=== PATIENT | male | born 1940 | race Caucasian/White ===

== ENCOUNTER 2017-09-16 21:09 | Inpatient (IN) | payer OTHER ==
[2017-09-16 22:32] LABS: Absolute Lymphocytes (CBC) 1.2 K/uL (0.7-4.9); Absolute Monocytes 1.4 K/uL (0.1-1.3); Basophils % 0.8 % (0-1.3); Eosinophils % 0.3 % (0-4.4); Hematocrit 40.1 % (39.6-49.0); Lymphocytes % 12.2 % (15.3-44.8); MCH 29.3 pg (27.0-35.0); MCV 87.9 fL (80-100); MPV 10.1 fL (7.6-11.3); Monocytes % 14.8 % (3.3-12.3); RBC Red Blood Cell Count 4.56 M/uL (4.33-5.43)
[2017-09-16 22:43] LABS: Protime INR 1.19
[2017-09-16 22:54] LABS: Albumin 3.7 g/dL (3.2-5.5); Bilirubin Direct 0.1 mg/dL (0-0.2); Bilirubin Total 0.6 mg/dL (0.3-1.2); Protein, Total 8.3 g/dL (6.0-8.3)
[2017-09-16] MEDS ORDERED: NA CHLORIDE 0.9% 1,000 ML ONE (23:04)
[2017-09-17 00:41] LABS: Urine Blood 2+ (NEG); Urine Glucose NEGATIVE (NEG); Urine Protein 3+ (NEG); Urine pH 5.5 (5.0-7.0)
[2017-09-17] MEDS ORDERED: CEFTRIAXONE/SWI 1gm 1 GM/10 ML SYR ONE (00:47)
--- NOTE | 2017-09-17 00:49 | ER ---
Nurse's Notes [facility] Name: Toney Brand Age: 77 yrs Sex: Male : 1940 Arrival Date: 09/16/2017 Time: 21:13 Bed 8 Private MD: Ze Strauss V Diagnosis: Dehydration;Urinary tract infection, site not specified Presentation: 09/16 21:10 Presenting complaint: EMS states: that pt's called because he is having overall fc weakness since early this am when he woke up. Pt weakness is noted to all exts but told EMS that is normal for pt along with his left facial droop since his CVA a few months ago. Transition of care: patient was not received from another setting of care. Onset of symptoms was September 16, 2017 at 07:00. Initial Sepsis Screen: Does the patient meet any 2 criteria? Temp <36.0*C (96.8*F)) or > 38.3*C (100.4*F). Yes Does the patient have a suspected source of infection? No. Patient's initial sepsis screen is negative. Care prior to arrival: Glucose check: 70. 21:10 Method Of Arrival: EMS: [facility] 21:10 Acuity: JOY 2 fc Historical: - Allergies: 21:24 NKA; fc - Home Meds: 21:24 Levemir 100 unit/mL subcutaneous soln 25 unit daily [Active]; Novolog 100 unit/mL Sub-Q fc soln 5 unit before meals [Active]; Risperdal 0.5 mg Oral tab nightly [Active]; lisinopril 40 mg Oral tab 1 tab once daily [Active]; tamsulosin 0.4 mg oral cp24 1 cap once daily [Active]; atorvastatin 40 mg oral tab 1 tab once daily [Active]; potassium chloride 10 mEq Oral cpER 1 cap 2 times per day [Active]; pantoprazole 40 mg oral TbEC 1 tab once daily [Active]; Eliquis 5 mg oral tab 1 tab 2 times per day [Active]; amlodipine 10 mg tab 1 tab once daily [Active]; - PMHx: 21:24 broken hips; CVA; Dementia; Parkinsons; POLYCYSTIC KIDNEY DISEASE; GERD; Hypertension; fc enlarged prostate; High Cholesterol; Diabetes - IDDM; - PSHx: 21:24 hip repair; shoulder; fc - Immunization history:: Adult Immunizations unknown. - Social history:: Smoking status: Patient/guardian denies using tobacco. Screenin:18 Abuse screen: Denies threats or abuse. Nutritional screening: No deficits noted. fc Tuberculosis screening: No symptoms or risk factors identified. 22:32 Fall Risk Total Woo Fall Scale indicates High Risk Score (45 or more points). Fall lp1 prevention measures have been instituted. Side Rails Up X 2 Family Present and informed to notify staff if the need to leave the bedside As available patient and family educated on Fall Prevention Program and Strategies. Assessment: 21:30 General: Appears in no apparent distress. Behavior is calm, cooperative. Pain: Denies lp1 pain. Neuro: Level of Consciousness is awake, alert, obeys commands, Oriented to person, place, Bridge Manager are equal bilaterally Moves all extremities. Full function Facial droop on left, From prior CVA per . Cardiovascular: Patient's skin is warm and dry. Respiratory: Respiratory effort is even, unlabored, Breath sounds are clear bilaterally. GI: Abdomen is flat. : Parent/caregiver report the patient having urinary frequency. EENT: No signs and/or symptoms were reported regarding the EENT system. Derm: Skin is fragile, is thin, Skin is dry, Skin is normal. Musculoskeletal: Circulation, motion, and sensation intact. 22:30 Reassessment: Patient appears in no apparent distress at this time. No changes from lp1 previously documented assessment. Patient and/or family updated on plan of care and expected duration. Pain level reassessed. 23:30 Reassessment:. General: Appears in no apparent distress. Behavior is calm, cooperative. lp1 Neuro: Level of Consciousness is awake, alert, obeys commands. Derm: Skin is pink, warm \T\ dry. 09/17 00:45 Reassessment: Patient agitated with straight cath insertion, calm after urine sample lp1 collected; at bedside. 01:30 Reassessment: Attempted to call report, states nurse will call back. lp1 Vital Signs: 09/16 21:10 BP 114 / 67; Pulse 89; Resp 16; Temp 100.5(O); Pulse Ox 96% on R/A; Weight 81.65 kg fc (R); Height 6 ft. 4 in. (193.04 cm) (R); Pain 0/10; 22:00 BP 106 / 61; Pulse 79; Resp 17; Pulse Ox 95% on R/A; lp1 23:00 BP 120 / 69; Pulse 73; Resp 18; Pulse Ox 95% on R/A; lp1 09/17 00:00 BP 112 / 60; Pulse 68; Resp 17; Temp 98.3(O); Pulse Ox 96% on R/A; lp1 01:00 BP 124 / 68; Pulse 73; Resp 17; Pulse Ox 98% on R/A; lp1 01:43 BP 117 / 57; Pulse 61; Resp 15; Pulse Ox 98% on R/A; lp1 09/16 21:10 Body Mass Index 21.91 (81.65 kg, 193.04 cm) ED Course: 09/16 21:10 Arm band placed on Patient placed in an exam room, on a stretcher. fc 21:13 Patient arrived in ED. fc 21:16 Kel Lux MD is Attending Physician. gs 21:17 Triage completed. fc 21:18 Patient has correct armband on for positive identification. Bed in low position. Call fc light in reach. Side rails up X2. pantograph machine operator on. Pulse ox on. NIBP on. 21:18 No provider procedures requiring assistance completed. fc 21:22 Ze Strauss MD is Private Physician. rg2 21:45 Inserted saline lock: 20 gauge in right antecubital area, using aseptic technique. lp1 Blood collected. 22:14 Mariella Bender, RN is Primary Nurse. lp1 22:[address] via stretcher. vm2 22:25 CT completed. Patient moved back from CT. vm2 22:26 CT Head Brain wo Cont In Process Unspecified. EDMS 22:48 Chest Single View XRAY In Process Unspecified. EDMS 22:48 X-ray completed. Portable x-ray completed in exam room. Patient tolerated procedure ag1 well. 09/17 00:38 Straight cath inserted, using sterile technique, 16 Fr. Specimen obtained. lp1 00:48 Ze Strauss MD is Hospitalizing Provider. gs 01:26 Patient admitted, IV remains in place. lp1 Administered Medications: 09/16 23:14 Drug: NS 0.9% 1000 ml Route: IV; Rate: 1 bolus; Site: right antecubital; lp1 09/17 01:16 Follow up: IV Status: Completed infusion lp1 01:00 Drug: Rocephin - (cefTRIAXone) 1 grams Route: IVPB; Infused Over: 30 mins; Site: right lp1 antecubital; 01:17 Follow up: IV Status: Completed infusion lp1 Point of Care Testing: Blood Glucose: 09/16 21:25 Blood Glucose: 82 mg/dL; lp1 Ranges: Outcome: 09/17 00:49 Decision to Hospitalize by Provider. gs 01:26 Condition: stable lp1 01:26 Instructed on the need for admit, to patient and 01:41 Admitted to Tele accompanied by tech, via stretcher, room 416, with chart, Report lp1 called to DANNA Keys 01:48 Patient left the ED. lp1 Signatures: Dispatcher [employer] Tavares Shah rg2 Sanjana Atwood RN RN fc Pena, Laura, RN RN lp1 Jannet Allan Ruby Flynn 2 Kel Lux MD MD
--- NOTE | 2017-09-17 00:49 | EDPHYS ---
Physician Documentation [facility] Name: Toney Brand Age: 77 yrs Sex: Male : 1940 Arrival Date: 09/16/2017 Time: 21:13 Bed 8 Private MD: Ze Strauss V ED Physician Kel Lux HPI: 09/17 00:44 This 77 yrs old Male presents to ER via EMS with complaints of General gs Weakness. 00:44 The patient presents to the emergency department with weakness of the entire body, gs generalized weakness. Onset: The symptoms/episode began/occurred 5 day(s) ago. Context: occurred at home. Associated signs and symptoms: Pertinent positives: altered mental status, chills, anorexia. Severity of symptoms: At their worst the symptoms were moderate in the emergency department the symptoms are unchanged. Current symptoms: confusion. The patient has experienced similar episodes in the past, several times. The patient has been recently seen by a physician: discharge from facility about 10 days ago. Historical: - Allergies: 09/16 21:24 NKA; fc - Home Meds: 21:24 Levemir 100 unit/mL subcutaneous soln 25 unit daily [Active]; Novolog 100 unit/mL Sub-Q fc soln 5 unit before meals [Active]; Risperdal 0.5 mg Oral tab nightly [Active]; lisinopril 40 mg Oral tab 1 tab once daily [Active]; tamsulosin 0.4 mg oral cp24 1 cap once daily [Active]; atorvastatin 40 mg oral tab 1 tab once daily [Active]; potassium chloride 10 mEq Oral cpER 1 cap 2 times per day [Active]; pantoprazole 40 mg oral TbEC 1 tab once daily [Active]; Eliquis 5 mg oral tab 1 tab 2 times per day [Active]; amlodipine 10 mg tab 1 tab once daily [Active]; - PMHx: 21:24 broken hips; CVA; Dementia; Parkinsons; POLYCYSTIC KIDNEY DISEASE; GERD; Hypertension; fc enlarged prostate; High Cholesterol; Diabetes - IDDM; - PSHx: 21:24 hip repair; shoulder; fc - Immunization history:: Adult Immunizations unknown. - Social history:: Smoking status: Patient/guardian denies using tobacco. ROS: 09/17 00:44 Unable to obtain ROS due to baseline dementia. gs Exam: 00:44 Head/Face: Normocephalic, atraumatic. Eyes: Pupils equal round and reactive to light, gs extra-ocular motions intact. Lids and lashes normal. Conjunctiva and sclera are non-icteric and not injected. Cornea within normal limits. Periorbital areas with no swelling, redness, or edema. ENT: Nares patent. No nasal discharge, no septal abnormalities noted. Tympanic membranes are normal and external auditory canals are clear. Oropharynx with no redness, swelling, or masses, exudates, or evidence of obstruction, uvula midline. Mucous membranes moist. Neck: Trachea midline, no thyromegaly or masses palpated, and no cervical lymphadenopathy. Supple, full range of motion without nuchal rigidity, or vertebral point tenderness. No Meningismus. Chest/axilla: Normal chest wall appearance and motion. Nontender with no deformity. No lesions are appreciated. Cardiovascular: Regular rate and rhythm with a normal S1 and S2. No gallops, murmurs, or rubs. Normal PMI, no JVD. No pulse deficits. Respiratory: Lungs have equal breath sounds bilaterally, clear to auscultation and percussion. No rales, rhonchi or wheezes noted. No increased work of breathing, no retractions or nasal flaring. Abdomen/GI: Soft, non-tender, with normal bowel sounds. No distension or tympany. No guarding or rebound. No evidence of tenderness throughout. Back: No spinal tenderness. No costovertebral tenderness. Full range of motion. Skin: Warm, dry with normal turgor. Normal color with no rashes, no lesions, and no evidence of cellulitis. MS/ Extremity: Pulses equal, no cyanosis. Neurovascular intact. Full, normal range of motion. 00:44 Constitutional: The patient appears alert, awake. 00:44 ECG was reviewed by the Attending Physician. 00:44 Neuro: Orientation: Not oriented to place, time, situation, Cranial nerves: CN II- XII are normal as tested, Motor: moves all fours, Sensation: no obvious gross deficits. Vital Signs: 09/16 21:10 BP 114 / 67; Pulse 89; Resp 16; Temp 100.5(O); Pulse Ox 96% on R/A; Weight 81.65 kg fc (R); Height 6 ft. 4 in. (193.04 cm) (R); Pain 0/10; 22:00 BP 106 / 61; Pulse 79; Resp 17; Pulse Ox 95% on R/A; lp1 23:00 BP 120 / 69; Pulse 73; Resp 18; Pulse Ox 95% on R/A; lp1 09/17 00:00 BP 112 / 60; Pulse 68; Resp 17; Temp 98.3(O); Pulse Ox 96% on R/A; lp1 01:00 BP 124 / 68; Pulse 73; Resp 17; Pulse Ox 98% on R/A; lp1 01:43 BP 117 / 57; Pulse 61; Resp 15; Pulse Ox 98% on R/A; lp1 09/16 21:10 Body Mass Index 21.91 (81.65 kg, 193.04 cm) fc MDM: 09/16 21:55 Patient medically screened. 09/17 00:44 Data reviewed: vital signs, old medical records. Response to treatment: the patient's gs symptoms have mildly improved after treatment. Physician consultation: Ze Strauss MD and will see patient in inpatient room. 09/16 22:13 Order name: Basic Metabolic Panel 09/16 22:13 Order name: Blood Culture Adult (2) 09/16 22:13 Order name: CBC with Diff; Complete Time: 00:41 09/16 22:13 Order name: CPK; Complete Time: 00:41 09/16 22:13 Order name: Lactate; Complete Time: 00:41 09/16 22:13 Order name: LFT's; Complete Time: 00:41 09/16 22:13 Order name: Lipase; Complete Time: 00:41 09/16 22:13 Order name: Procalcitonin; Complete Time: 00:41 09/16 22:13 Order name: Protime (+inr); Complete Time: 00:41 09/16 22:13 Order name: Troponin (emerg Dept Use Only); Complete Time: 00:41 09/16 22:13 Order name: AMMONIA; Complete Time: 00:41 09/16 22:13 Order name: Basic Metabolic Panel; Complete Time: 00:41 EDMS 09/17 00:37 Order name: Urine Dipstick--Ancillary (enter results); Complete Time: 00:43 oe 09/17 00:40 Order name: Urine Microscopic Only lp1 09/16 22:13 Order name: Chest Single View XRAY 09/16 22:13 Order name: Accucheck; Complete Time: 22:31 09/16 22:13 Order name: Cardiac monitoring; Complete Time: 22:31 09/16 22:13 Order name: EKG - Nurse/Tech; Complete Time: 22:47 09/16 22:13 Order name: IV Saline Lock - Large Bore; Complete Time: 22:31 09/16 22:13 Order name: Labs collected and sent; Complete Time: 22:31 09/16 22:13 Order name: O2 Per Protocol; Complete Time: 22:31 09/16 22:13 Order name: O2 Sat Monitoring; Complete Time: : 09/16 22:13 Order name: Urine Dipstick-Ancillary (obtain specimen); Complete Time: 00:35 09/16 22:13 Order name: CT Head Brain wo Cont 09/17 00:43 Order name: Urine Culture 09/17 00:57 Order name: Regular EDMS EC:44 Rate is 76 beats/min. Rhythm is regular. IL interval is normal. QRS interval is normal. gs T waves are Normal. No ST changes noted. Clinical impression: Normal ECG. Interpreted by me. Administered Medications: 09/16 23:14 Drug: NS 0.9% 1000 ml Route: IV; Rate: 1 bolus; Site: right antecubital; lp1 09/17 01:16 Follow up: IV Status: Completed infusion lp1 01:00 Drug: Rocephin - (cefTRIAXone) 1 grams Route: IVPB; Infused Over: 30 mins; Site: right lp1 antecubital; 01:17 Follow up: IV Status: Completed infusion lp1 Point of Care Testing: Blood Glucose: 09/16 21:25 Blood Glucose: 82 mg/dL; lp1 Ranges: Critical Glucose Levels:Adult <50 mg/dl or >400 mg/dl <40 mg/dl or >180 mg/dl Disposition: 09/17/17 00:49 Hospitalization ordered by Ze Strauss for Inpatient Admission. Preliminary diagnosis are Dehydration, Urinary tract infection, site not specified. - Bed requested for Telemetry/MedSurg (Inpatient). - Status is Inpatient Admission. lp1 - Condition is Stable. - Problem is new. - Symptoms have improved. UTI on Admission? Yes Signatures: Dispatcher [employer] Kamala Huffman, RN RN Sanjana Hernandez RN Mariella Paul RN RN lp1 Kel Lux MD MD
[2017-09-17] MEDS ORDERED: ACETAMINOPHEN 500 MG TAB PO PRN (00:56)
[2017-09-17 01:05] LABS: Urine Bacteria 20-50 /HPF (NONE SEEN); Urine Culture Reflex Order REFLEXED
[2017-09-17 01:06] LABS: Urine RBC <5 /HPF (NONE SEEN)
[2017-09-17] MEDS: NA CHLORIDE 0.9% 1,000 ML IV SCH ×4 (02:02→20:57)
--- NOTE | 2017-09-17 07:51 | RAD REPORT ---
EXAM DESCRIPTION: Sree Single View09/16/2017 10:50 pm CLINICAL HISTORY: Fever COMPARISON: March 2017 FINDINGS: The lungs appear clear of acute infiltrate. The heart is mildly enlarged. Aorta is tortuo us/ectatic IMPRESSION: No acute abnormalities displayed
--- NOTE | 2017-09-17 08:43 | RAD REPORT ---
EXAM DESCRIPTION: CT - Head Brain Wo Cont - 09/17/2017 8:13 am CLINICAL HISTORY: CVA/weakness COMPARISON: March 2017 TECHNIQUE: Computed axial tomography of the head was obtained. IV contrast was not requested. A prel iminary report was generated by [employer] and reviewed prior to this dictation All CT scans are performed using dose optimization technique as appropriate and may include automated exposure control or mA/KV adjustment according to patient size. FINDINGS: An intracranial bleed is not seen . The ventricles are normal in caliber. No extra-axial fluid collection is noted. Moderate low-density areas within periventricular, deep and subcortical white matter likely represent ischemic changes secondary to small vessel disease. Fluid within the sinuses/ mastoids is not seen. IMPRESSION: No acute intracranial abnormality is seen. If patient's symptoms persist MRI of the bra in would be recommended.
[2017-09-17] MEDS ORDERED: CEFTRIAXONE 1 GM/NS 50 ML 1 GM/50 ML BAG IV SCH (09:00)
--- NOTE | 2017-09-17 09:15 | EKG ---
Test Date: 2017-09-16 Test Time: 22:40:13 Deckhand Maintenance: OR MEASUREMENT RESULTS: Intervals: Rate: 76 OR: 160 QRSD: 94 QT: 382 QTc: 429 Stanley: P: 60 OR: 160 QRS: -10 T: 72 INTERPRETIVE STATEMENTS: Normal sinus rhythm Normal ECG Compared to ECG 03/15/2017 09:53:45 No significant changes Electronically Signed On 09-17-17 09:13:47 CDT by Scar Gilman
[2017-09-17] MEDS: CEFTRIAXONE/SWI 1gm 1 GM/10 ML SYR IV SCH ×2 (09:46→20:19)
[2017-09-17] MEDS ORDERED: D50W 25 GM/50 ML SYRINGE IV PRN (12:57)
[2017-09-17] MEDS ORDERED: GLUCAGON 1 MG/VIAL IM PRN (12:57)
[2017-09-17] MEDS: INSULIN -REGULAR HUMAN 50 UNIT/0.5 ML ML SQ SCH ×2 (16:30→20:18)
[2017-09-17] MEDS ORDERED: INSULIN DETEMIR 100 UNIT/1 ML INSULIN SQ SCH (21:00)
--- NOTE | 2017-09-17 21:03 | P.HP ---
Certification for Inpatient Patient admitted to: Inpatient With expected LOS: >2 Midnights Practitioner: I am a practitioner with admitting privileges, knowledge of patient current condition, hospital course, and medical plan of care. Services: Services provided to patient in accordance with Admission requirements found in Title 42 Section 412.3 of the Code of Federal Regulations Patient History Date of Service: 09/17/17 Reason for admission: WEAK, ALTERED MENTAL STATUS History of Present Illness: MR. TELLO IS A DIABETIC WITH SEVERE DEMENTIA AND IS TAKEN CARE BY AT HOME. SHE IS NOT ABLE TO TAKE CARE OF HER. HE HAS BEEN IN [facility] AND NOW HERE.. ER DOCTOR DID ST CATH UA AND FOUND UTI TO BE ONE PROBLEM. Allergies No Known Drug Allergies Allergy (Verified 01/23/15 22:56) Unknown Home Medications: Alfuzosin HCl [Alfuzosin HCl ER] 10 mg PO DAILY 01/23/15 Insulin Detemir [Levemir*] 25 unit SQ BREAKFAST 01/23/15 Insulin Detemir [Levemir*] 50 unit SQ BEDTIME 09/29/15 Memantine HCl [Namenda Xr] 28 mg PO DAILY 09/29/15 Amlodipine [Norvasc] 10 mg PO DAILY 09/17/17 Apixaban [Eliquis] 5 mg PO BID 09/17/17 Atorvastatin Calcium 40 mg PO DAILY 09/17/17 Divalproex [Depakote Sprinkle] 4 cap PO BID 09/17/17 Insulin Aspart [Novolog Flexpen] 5 unit SQ TIDWM 09/17/17 Lisinopril [Lisinopril] 1 tab PO DAILY 09/17/17 Pantoprazole [Protonix Tab] 40 mg PO DAILY 09/17/17 Potassium Chloride 10 meq PO BID 09/17/17 Tamsulosin [Flomax] 0.4 mg PO DAILY 09/17/17 Terbinafine HCl 250 mg PO DAILY 09/17/17 - Past Medical/Surgical History Has patient received pneumonia vaccine in the past: Yes Diabetic: Yes -: HTN -: IDDM -: High cholesterol -: Parkinson's -: CVA 17yrs ago -: Polycystic kidney disease -: dementia -: gerd -: enlarged prostate -: R rotator cuff sx -: Wrist sx -: Tonsillectomy -: Rt hip sx - aneta and screws Sep 30 2015 - Family History Father Notes: Patient was adopted - Social History Smoking Status: Former smoker Alcohol use: No CD- Drugs: No Caffeine use: Yes Place of Residence: Home Review of Systems 10-point ROS is otherwise unremarkable General: Weakness, Malaise Neurological: Confusion Physical Examination - Vital Signs Temperature: 97.4 F Blood Pressure: 170/64 Pulse: 74 Respirations: 20 Pulse Ox (%): 98 - Physical Exam General: Alert, Mild distress, Confused HEENT: Atraumatic, PERRLA, Mucous membr. moist/pink, EOMI, Sclerae nonicteric Neck: Supple, 2+ carotid pulse no bruit, No LAD, Without JVD or thyroid abnormality Respiratory: Clear to auscultation bilaterally, Normal air movement Cardiovascular: Regular rate/rhythm, Normal S1 S2 Gastrointestinal: Normal bowel sounds, No tenderness Musculoskeletal: No tenderness Integumentary: No rashes Neurological: Normal speech, Normal strength at 5/5 x4 extr, Dementia Lymphatics: No axilla or inguinal lymphadenopathy - Studies Laboratory Data (last 24 hrs) 09/16/17 21:45: PT 14.1 H, INR 1.19 09/16/17 21:45: WBC 9.7, Hgb 13.4 L, Hct 40.1, Plt Count 236 09/16/17 21:45: Sodium 143, Potassium 4.0, BUN 31 H, Creatinine 1.23, Glucose 101, Total Bilirubin 0.6, AST 18, ALT 14, Alkaline Phosphatase 71, Lipase 11 L Assessment and Plan - Problems (Diagnosis) (1) Altered mental state Current Visit: Yes Status: Chronic Plan: WORSE LATELY MAINLY 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 (2) UTI (urinary tract infection) Onset Date: 09/17/17 Current Visit: Yes Status: Acute Plan: IV ABX ROCEPHIN RESUME CULTURE PENDING. (3) Dementia Onset Date: 01/24/15 Current Visit: No Status: Chronic Plan: BEHAVIOURAL CHANGES. PSYCH MD IN [facility] PUT HIM ON DEPAKOTE. HE IS THE SAME. PLACEMENT. Qualifiers: (4) Parkinson disease Onset Date: 01/24/15 Current Visit: No Status: Chronic - Advance Directives Does patient have a Living Will: No Does patient have a Durable POA for Healthcare: No
[2017-09-17] MEDS: DIVALPROEX NA 125 MG CAP PO SCH (21:42)
[2017-09-17] MEDS: APIXABAN 5 MG TABLET PO SCH (21:42)
[2017-09-18] MEDS: INSULIN -REGULAR HUMAN 50 UNIT/0.5 ML ML SQ SCH ×4 (07:30→21:00)
[2017-09-18] MEDS: INSULIN DETEMIR 100 UNIT/1 ML INSULIN SQ SCH ×3 (08:00→20:55)
[2017-09-18] MEDS: INSULIN LISPRO 100 UNIT/1 ML SQ SCH ×3 (08:00→16:19)
[2017-09-18] MEDS: HOME MED 1 EA UNK (Alfuzosin Hcl [Alfuzosin Hcl Er] 10 MG) PO SCH (09:00)
[2017-09-18] MEDS: HOME MED 1 EA UNK (Memantine Hcl [Namenda Xr] 28 MG) PO SCH (09:00)
[2017-09-18] MEDS ORDERED: TAMSULOSIN 0.4 MG SR CAP PO SCH (09:00)
[2017-09-18] MEDS: ATORVASTATIN 40 MG TAB PO SCH (09:02)
[2017-09-18] MEDS: PANTOPRAZOLE 40MG TABLET PO SCH (09:03)
[2017-09-18] MEDS: APIXABAN 5 MG TABLET PO SCH ×2 (09:03→20:53)
[2017-09-18] MEDS: AMLODIPINE 10 MG TAB PO SCH (09:04)
[2017-09-18] MEDS: LISINOPRIL 20 MG TAB PO SCH (09:04)
[2017-09-18] MEDS: CEFTRIAXONE/SWI 1gm 1 GM/10 ML SYR IV SCH ×2 (09:05→21:00)
[2017-09-18] MEDS: DIVALPROEX NA 125 MG CAP PO SCH ×2 (09:06→20:54)
[2017-09-18] MEDS: NA CHLORIDE 0.9% 1,000 ML IV SCH (13:04)
[2017-09-18 17:24] LABS: RPR Titer ND
--- NOTE | 2017-09-18 17:29 | P.PN ---
Subjective Date of Service: 09/18/17 Chief Complaint: WEAK, ALTERED MENTAL STATUS Subjective: No new changes MR TELLO HAS SEVERE DEMENTIA. HE ALSO HAS PARKINSON'S AND DIABETES. HE HAS BEEN IN AND OUT OF HOSPITAL FOR LAST 1.5 MONTHS. STARTING FROM HOME WHEN HE HAD EPISODE OF MUMBLING AND SLUMPING, EMT CALLED [facility] AND MOVED HIM TO [place] FROM HOME. HE WAS DIAGNOSED TO HAVE STROKE, KEPT THERE FOR A FEW DAYS, THEN SENT TO REHAB IN [facility], STAYE A FEW DAYS BUT HE BECAME VERBALLY ABUSIVE AND SO WAS SENT TO [facility] WHERE DR. OLIVER TOOK CARE OF HIM, HE IS ON DEPAKOT FROM THERE. HE GOES HOME AND BRINGS HIM HERE NOW FOR GENERAL WEAKNESS. HE IS FOUND TO HAVE UTI. Review of Systems 10-point ROS is otherwise unremarkable General: Weakness, Malaise Neurological: Confusion Physical Examination - Vital Signs Temperature: 98.2 F Blood Pressure: 127/51 Pulse: 65 Respirations: 16 Pulse Ox (%): 98 - Physical Exam General: Alert, Mild distress, Confused (NO MORE FROM HOME.) HEENT: Atraumatic, PERRLA, EOMI Neck: Supple, JVD not distended Respiratory: Clear to auscultation bilaterally, Normal air movement Cardiovascular: Regular rate/rhythm, Normal S1 S2 Gastrointestinal: Normal bowel sounds, No tenderness Musculoskeletal: No tenderness Integumentary: No rashes Neurological: Other (NOT COOPERATIVE), Abnormal speech, Abnormal strength ( WHEELCHAIR BOUND.), Dementia Lymphatics: No axilla or inguinal lymphadenopathy - Studies Medications List Reviewed: Yes Assessment And Plan - Current Problems (Diagnosis) (1) Altered mental state Current Visit: Yes Status: Chronic Plan: WORSE LATELY MAINLY 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 BASELINE PROFOUND DEMENTIA. START THIAMINE IV. IDEALLY HE SHOULD NOT BE HOME. HIS DOES NOT WANT TO PLACE HIM IN [place]. HE IS STABLE TO GO HOME BUT IS NOT ABLE TOTAKE CARE OF HIM. I CONSULTED PT AND HE STARTED TO FIGHT THEM. Qualifiers: Altered mental status type: delirium Qualified Code(s): R41.0 - Disorientation, unspecified (2) UTI (urinary tract infection) Onset Date: 09/17/17 Current Visit: Yes Status: Acute Plan: IV ABX ROCEPHIN RESUME CULTURE PENDING. (3) Dementia Onset Date: 01/24/15 Current Visit: No Status: Chronic Plan: BEHAVIOURAL CHANGES. PSYCH MD IN [facility] PUT HIM ON DEPAKOTE. HE IS THE SAME. PLACEMENT. Qualifiers: (4) Parkinson disease Onset Date: 01/24/15 Current Visit: No Status: Chronic
[2017-09-18] MEDS: THIAMINE 200 MG/2 ML INJ IVP SCH (17:58)
[2017-09-19 03:41] LABS: RPR (Rapid Plasma Reagin) NON-REACT (NON-REACT)
[2017-09-19] MEDS: INSULIN -REGULAR HUMAN 50 UNIT/0.5 ML ML SQ SCH ×3 (07:30→16:47)
[2017-09-19] MEDS: INSULIN LISPRO 100 UNIT/1 ML SQ SCH ×3 (08:49→16:48)
[2017-09-19] MEDS: INSULIN DETEMIR 100 UNIT/1 ML INSULIN SQ SCH (08:50)
[2017-09-19] MEDS: HOME MED 1 EA UNK (Alfuzosin Hcl [Alfuzosin Hcl Er] 10 MG) PO SCH (08:52)
[2017-09-19] MEDS: APIXABAN 5 MG TABLET PO SCH (08:52)
[2017-09-19] MEDS: HOME MED 1 EA UNK (Memantine Hcl [Namenda Xr] 28 MG) PO SCH (08:52)
[2017-09-19] MEDS: ATORVASTATIN 40 MG TAB PO SCH (08:52)
[2017-09-19] MEDS: PANTOPRAZOLE 40MG TABLET PO SCH (08:52)
[2017-09-19] MEDS: LISINOPRIL 20 MG TAB PO SCH (08:52)
[2017-09-19] MEDS: THIAMINE 200 MG/2 ML INJ IVP SCH (08:53)
[2017-09-19] MEDS: AMLODIPINE 10 MG TAB PO SCH (08:53)
[2017-09-19] MEDS: DIVALPROEX NA 125 MG CAP PO SCH (08:53)
[2017-09-19] MEDS: CEFTRIAXONE/SWI 1gm 1 GM/10 ML SYR IV SCH (08:54)
--- NOTE | 2017-09-19 11:58 | P.DS ---
Admission Date: 09/17/17 Discharge Date: 09/19/17 Disposition: DC HOME/HOME HEALTH CARE Discharge Condition: FAIR Reason for Admission: WEAK, ALTERED MENTAL STATUS - Problems (1) Altered mental state Current Visit: Yes Status: Chronic Qualifiers: Altered mental status type: delirium Qualified Code(s): R41.0 - Disorientation, unspecified (2) UTI (urinary tract infection) Onset Date: 09/17/17 Current Visit: Yes Status: Acute (3) Dementia Onset Date: 01/24/15 Current Visit: No Status: Chronic Qualifiers: (4) Parkinson disease Onset Date: 01/24/15 Current Visit: No Status: Chronic Brief History of Present Illness: MR. TELLO IS A DIABETIC WITH SEVERE DEMENTIA AND IS TAKEN CARE BY AT HOME. SHE IS NOT ABLE TO TAKE CARE OF HER. HE HAS BEEN IN HOSPITAL, [facility] AND NOW HERE.. ER DOCTOR DID [facility] UA AND FOUND UTI TO BE ONE PROBLEM. MS TELLO DOES NOT WANT SENIOR CARE. SHE HAS HELP AT HOME. HE IS NOT COOPERATING WITH THERAPY HERE BUT HE DID [facility]. HE HAD [facility] BEFORE. HE WILL GET ANTIBIOTIC AND THIAMINE FOR HOME. Vital Signs/Physical Exam: Temp Pulse Resp BP Pulse Ox 97.7 F 76 16 181/82 H 99 09/19/17 08:00 09/19/17 08:53 09/19/17 08:00 09/19/17 08:53 09/19/17 08:00 Laboratory Data at Discharge: WBC 9.7 K/uL (4.3-10.9) 09/16/17 21:45 Hgb 13.4 g/dL (13.6-17.9) L 09/16/17 21:45 Hct 40.1 % (39.6-49.0) 09/16/17 21:45 Plt Count 236 K/uL (152-406) 09/16/17 21:45 PT 14.1 SECONDS (9.5-12.5) H 09/16/17 21:45 INR 1.19 09/16/17 21:45 Sodium 143 mEq/L (135-145) 09/16/17 21:45 Potassium 4.0 mEq/L (3.6-5.0) 09/16/17 21:45 BUN 31 mg/dL (6-20) H 09/16/17 21:45 Creatinine 1.23 mg/dL (0.61-1.24) 09/16/17 21:45 Glucose 101 mg/dL (65-120) 09/16/17 21:45 Total Bilirubin 0.6 mg/dL (0.3-1.2) 09/16/17 21:45 AST 18 IU/L (10-42) 09/16/17 21:45 ALT 14 IU/L (10-60) 09/16/17 21:45 Alkaline Phosphatase 71 IU/L (42-121) 09/16/17 21:45 Lipase 11 U/L (22-51) L 09/16/17 21:45 Home Medications: Alfuzosin HCl [Alfuzosin HCl ER] 10 mg PO DAILY 01/23/15 Insulin Detemir [Levemir*] 25 unit SQ BREAKFAST 01/23/15 Memantine HCl [Namenda Xr] 28 mg PO DAILY 09/29/15 Amlodipine [Norvasc*] 10 mg PO DAILY 09/17/17 Apixaban [Eliquis] 5 mg PO BID 09/17/17 Atorvastatin Calcium 40 mg PO DAILY 09/17/17 Divalproex [Depakote Sprinkle*] 4 cap PO BID 09/17/17 Insulin Aspart [Novolog Flexpen] 5 unit SQ TIDWM 09/17/17 Lisinopril 1 tab PO DAILY 09/17/17 Pantoprazole [Protonix Tab*] 40 mg PO DAILY 09/17/17 Thiamine HCl 100 mg PO DAILY #100 tablet 09/19/17 New Medications: Thiamine HCl 100 mg PO DAILY #100 tablet
[2017-09-19] MEDS: NA CHLORIDE 0.9% 1,000 ML IV SCH (12:57)
[2017-09-19 14:07] VITALS: O2SAT 95
[2017-09-19 17:07] VITALS: BP 133/65; TEMP 98
== END 2017-09-19 18:22 | disposition home health service (06) | DRG 690 ==
LOC: ER 21:09 → ERHOLD 09-17 01:03 → 4TH 09-17 01:18
PROVIDERS: ADMIT Internal Medicine; ATTEND Internal Medicine
DX: N39.0 Urinary tract infection, site not specified (principal); F03.90 Unspecified dementia, unspecified severity, without behavioral disturbance, psychotic disturbance, mood disturbance, and anxiety; G20 Parkinson's disease; F02.80 Dementia in other diseases classified elsewhere, unspecified severity, without behavioral disturbance, psychotic disturbance, mood disturbance, and anxiety; E11.9 Type 2 diabetes mellitus without complications; I10 Essential (primary) hypertension; Z86.73 Personal history of transient ischemic attack (TIA), and cerebral infarction without residual deficits
CPT/HCPCS: 36415; 51702; 70450; 71045; 80048; 80076; 81003; 81015; 82140; 82550; 82607; 82962; 83605; 83690; 84145; 84484; 85025; 85610; 86592; 87040; 87077; 87086; 87088; 87186; 93005; 96361; 96365; 97163; 99285; J0696; J3411; J7030

== ENCOUNTER 2017-11-03 16:48 | Emergency (ER) | payer OTHER ==
[2017-11-03] MEDS ORDERED: EPINEPHrine 1 MG/10 ML SYR IV ONE ×2 (16:49→19:00)
[2017-11-03] MEDS ORDERED: SOD BICARB 8.4% PEDI 10 mEq/10 mL SYR IVP ONE (16:49)
[2017-11-03] MEDS ORDERED: NA CHLORIDE 0.9% 1,000 ML IV ONE (16:49)
[2017-11-03] MEDS ORDERED: NA CHLORIDE 0.9% 2,000 ML ONE (16:57)
[2017-11-03] MEDS ORDERED: NOREPINEPHRINE 4mg/D5W 250mL 4 MG/250 ML BAG IV ONE (17:03)
[2017-11-03] MEDS ORDERED: EPINEPHrine 1 MG/10 ML SYR ONE (17:32)
[2017-11-03] MEDS ORDERED: DOPAMINE/D5W 400 MG/250 ML BAG IV ONE (17:37)
--- NOTE | 2017-11-03 18:05 | ER ---
Nurse's Notes [facility] Name: Toney Brand Age: 77 yrs Sex: Male : 1940 Arrival Date: 11/03/2017 Time: 16:52 Bed 4 Private MD: Diagnosis: Severe sepsis with septic shock;Cardiac arrest Presentation: 11/03 16:52 Presenting complaint: EMS states: pt called for pt c/o of neck pain and blue lower sg extremities x2 to 3 days. upon arrival pt hypotensive, a palpable systolic of 50's, FSBG of 309, pt hx of dementia but says he is usually more alert, pt aa\T\ox1 to self upon arrival. Care prior to arrival: Medication(s) given: Normal saline infusion, 700 mL IV initiated. 20 GA, in the left antecubital area, Glucose check: 309. 16:52 Method Of Arrival: EMS: [facility] sg 16:52 Acuity: JOY 2 sg Historical: - Allergies: 16:55 NKA; aa5 - PMHx: 16:55 broken hips; CVA; Dementia; Diabetes - IDDM; enlarged prostate; GERD; High Cholesterol; aa5 Hypertension; Parkinsons; POLYCYSTIC KIDNEY DISEASE; - PSHx: 16:55 hip repair; shoulder; aa5 - Social history:: The patient lives with spouse, at home. Assessment: 16:52 General: Appears distressed, ill, unkempt, well developed, well nourished, Behavior is sg agitated, anxious, Smells of stool. Pain: Unable to use pain scale. Patient is disoriented. Neuro: Level of Consciousness is awake, Oriented to person, Facial symmetry appears normal. Cardiovascular: Capillary refill is sluggish in bilateral fingers. Respiratory: Airway is patent Respiratory effort is even, shallow, Respiratory pattern is regular, tachypnea. GI: Abdomen is round Abd is soft X 4 quads Mass noted in left lower quadrant. : No deficits noted. EENT: No deficits noted. Derm: Skin is intact, Skin is clammy, Skin is pale, Skin temperature is cool. Musculoskeletal: No deficits noted. 17:02 Cardiovascular: Pulses are absent in right radial artery, right femoral artery, left sg radial artery, left femoral artery and left carotid pulse at [facility] assessing pt. Respiratory: Airway is patent Respiratory effort is gasping, Respiratory pattern is agonal. 17:03 Reassessment: CPR initiated. sg 17:05 CPR assessment: unresponsive, Ambu ventilation, cyanotic. Cardiac rhythm is paced, no tw2 palpable pulse. 17:08 CPR assessment: unresponsive, Ambu ventilation, cyanotic. Cardiac rhythm is paced, no tw2 palpable pulse. 17:10 CPR assessment: unresponsive, Ambu ventilation, cyanotic. Cardiac rhythm is paced, no tw2 palpable pulse. 17:12 CPR assessment: unresponsive, Ambu ventilation, cyanotic. Cardiac rhythm is PEA. tw2 General: FSBS 303 mg/dL . 17:14 CPR assessment: unresponsive, intubated, cyanotic. Cardiac rhythm is PEA. tw2 17:16 CPR assessment: unresponsive, intubated. Cardiac rhythm is PEA. tw2 17:18 CPR assessment: unresponsive, intubated. Cardiac rhythm is PEA. tw2 17:20 CPR assessment: unresponsive, intubated, pts at bedside at this time. Cardiac tw2 rhythm is PEA. 17:[address] Lux speaking with regarding pts condition. tw2 17:27 CPR assessment: unresponsive, intubated. Cardiac rhythm is PEA. tw2 17:29 CPR assessment: unresponsive, intubated. Cardiac rhythm is PEA, via US on the heart tw2 performed by Dr. Lux. 17:32 CPR assessment: unresponsive, intubated. Cardiac rhythm is PEA. tw2 17:35 CPR assessment: unresponsive, intubated. Cardiac rhythm is using doppler on femoral tw2 artery at this time via Dr. Lux. 17:38 CPR assessment: unresponsive, intubated, cyanotic. Cardiac rhythm is PEA. tw2 18:40 Reassessment: Judge Wise at bedside . aa5 19:50 Reassessment: [facility] at facility for transfer. ea Vital Signs: 16:52 BP 66 / 46; Pulse 108 MON; Resp 38 S; Temp 100.1(R); Pulse Ox 91% on R/A; Weight 74 kg; sg [place] Coma Score: 16:52 Eye Response: spontaneous(4). Verbal Response: confused(4). Motor Response: withdraws sg from pain(4). Total: 12. ED Course: 16:52 Patient arrived in ED. aa5 16:52 Kel Lux MD is Attending Physician. gs 16:53 EKG done, by technical clerk. reviewed by Kel Lux MD. at1 17:12 Patient has correct armband on for positive identification. Intubation: Ventilated with tw2 100% bag valve mask (BVM) prior to procedure. O2 saturation prior to procedure was 52 %. 7.5 Fr. ETT placed orally. Performed by Kel Lux MD Placement verified by CO2 detector w/ + color change, auscultating bilateral breath sounds, Ventilated with Ambu bag. measures 23 at lip. 18:03 Kel Lux MD is Pronouncing Provider. gs 18:05 notified police dept to have horizontal boring mill operator call er. bd 18:34 Gallito Araujo, RN is Primary Nurse. sg 18:38 Triage completed. sg 19:35 Primary Nurse role handed off by Gallito Araujo, RN rg2 Administered Medications: 17:02 Drug: Sodium Bicarbonate 1 amp Route: IVP; Site: left antecubital; tw2 17:03 Drug: EPINEPHrine 0.1mg/mL 1:10,000 1 mg Route: IVP; Site: left antecubital; tw2 17:06 Drug: EPINEPHrine 0.1mg/mL 1:10,000 1 mg Route: IVP; Site: left antecubital; tw2 17:09 Drug: EPINEPHrine 0.1mg/mL 1:10,000 1 mg Route: IVP; Site: left antecubital; tw2 17:11 Drug: Sodium Bicarbonate 1 amp Route: IVP; Site: left antecubital; tw2 17:12 Drug: EPINEPHrine 0.1mg/mL 1:10,000 1 mg Route: IVP; Site: left antecubital; tw2 17:15 Drug: EPINEPHrine 0.1mg/mL 1:10,000 1 mg Route: IVP; Site: left antecubital; tw2 17:19 Drug: EPINEPHrine 0.1mg/mL 1:10,000 1 mg Route: IVP; Site: left antecubital; tw2 17:24 Drug: EPINEPHrine 0.1mg/mL 1:10,000 1 mg Route: IVP; Site: left antecubital; tw2 17:29 Drug: EPINEPHrine 0.1mg/mL 1:10,000 1 mg Route: IVP; Site: left antecubital; tw2 17:32 Drug: Dopamine drip 5 mcg/kg/min - (DOPamine 400 mg, D5W 250 ml) {Note: max dose VO 50 tw2 mcg/kg/min per Dr. Lux.} Route: IV; Rate: calculated rate; Site: right jugular; 18:00 Follow up: IV Status: Order to discontinue infusion sg 17:33 Drug: EPINEPHrine 0.1mg/mL 1:10,000 1 mg Route: IVP; Site: left antecubital; tw2 17:39 Drug: EPINEPHrine 0.1mg/mL 1:10,000 1 mg Route: IVP; Site: left antecubital; tw2 17:42 Drug: EPINEPHrine 0.1mg/mL 1:10,000 1 mg Route: IVP; Site: left antecubital; tw2 17:55 CANCELLED (Duplicate Order): EPINEPHrine 0.1mg/mL 1:10,000 1 mg IVP in left antecubital tw2 once Point of Care Testing: Blood Glucose: 16:52 Blood Glucose: 303 mg/dL; sg Ranges: Outcome: 17:[address] Lux speaking with at bedside as well as Natural Resource Economist Toney at this time. tw2 17:42 Outcome Patient 17:42 Patient : 17:42 Condition: 20:33 Patient left the ED. ea Signatures: Italia Hernandez [place] rg2 Gallito Araujo, RN RN sg Lucille Humphreys, RN RN aa5 Dolores montelongo, director of gift planning EKG Tat1 Jessica Watts RN RN tw2 Shonna Ocasio RN Kel Olguin ea, MD MD Corrections: (The following items were deleted from the chart) 17:16 17:15 EKG done, by technical clerk. reviewed by Kel Lux MD at1 at1 17:55 17:54 EPINEPHrine 0.1mg/mL 1:10,000 1 mg IVP in left antecubital tw2 tw2 17:55 17:42 EPINEPHrine 0.1mg/mL 1:10,000 1 mg IVP in left antecubital tw2 tw2 18:42 16:52 Presenting complaint: EMS states: pt called for pt c/o of neck pain and blue sg lower extremities x2 to 3 days. upon arrival pt hypotensive, a palpable systolic of 50's, FSBG of 309, pt hx of dementia but says he is usually more alert, pt aa\T\ox1 to self upon arrival sg 19:11 17:20 CPR assessment: unresponsive, intubated, tw2 tw2
--- NOTE | 2017-11-03 20:34 | EDPHYS ---
Physician Documentation [facility] Name: Toney Brand Age: 77 yrs Sex: Male : 1940 Arrival Date: 11/03/2017 Time: 16:52 Bed 4 Private MD: ED Physician Kel Lux HPI: 11/03 18:58 This 77 yrs old Male presents to ER via EMS with complaints of Blood Pressure gs Problem. 18:58 Onset: The symptoms/episode began/occurred 1 week(s) ago, and became worse and became gs persistent. Unable to obtain HPI due to baseline dementia, patient distress. brought in by ems , hypotensive hypoxemic tachypneic. Historical: - Allergies: 16:55 NKA; aa5 - PMHx: 16:55 broken hips; CVA; Dementia; Diabetes - IDDM; enlarged prostate; GERD; High Cholesterol; aa5 Hypertension; Parkinsons; POLYCYSTIC KIDNEY DISEASE; - PSHx: 16:55 hip repair; shoulder; aa5 - Social history:: The patient lives with spouse, at home. ROS: 18:58 Unable to obtain ROS due to baseline dementia, patient distress. gs Exam: 18:58 Head/Face: Normocephalic, atraumatic. Eyes: Pupils equal round and reactive to light, gs extra-ocular motions intact. Lids and lashes normal. Conjunctiva and sclera are non-icteric and not injected. Cornea within normal limits. Periorbital areas with no swelling, redness, or edema. ENT: Nares patent. No nasal discharge, no septal abnormalities noted. Tympanic membranes are normal and external auditory canals are clear. Oropharynx with no redness, swelling, or masses, exudates, or evidence of obstruction, uvula midline. Mucous membranes moist. Neck: Trachea midline, no thyromegaly or masses palpated, and no cervical lymphadenopathy. Supple, full range of motion without nuchal rigidity, or vertebral point tenderness. No Meningismus. Chest/axilla: Normal chest wall appearance and motion. Nontender with no deformity. No lesions are appreciated. 18:58 Constitutional: The patient appears alert, awake. 18:58 Cardiovascular: Rate: tachycardic, Rhythm: regular, Pulses: no pulse deficits are appreciated. 18:58 ECG was reviewed by the Attending Physician. Vital Signs: 16:52 BP 66 / 46; Pulse 108 MON; Resp 38 S; Temp 100.1(R); Pulse Ox 91% on R/A; Weight 74 kg; sg [place] Coma Score: 16:52 Eye Response: spontaneous(4). Verbal Response: confused(4). Motor Response: withdraws sg from pain(4). Total: 12. Procedures: 20:30 CPR: See CPR flow sheet. despite ED evaluation and treatment, the patient . gs Intubation: Intubated orally using # 3 Rober blade with 7.5 mm ETT. was successful on first attempt. Ventilated with Ambu bag. Tube secured with ETT jaramillo Placement verified by CO2 detector with (+) color change, auscultating bilateral breath sounds, Patient tolerated well. 20:30 Ultrasound: Type: Fast exam, performed by the emergency department physician. gs MDM: 17:46 Patient medically screened. 20:30 Data reviewed: vital signs, nurses notes. ED course: spoke with about futility gs says to terminate efforts. 11/03 17:48 Order name: EKG Electrocardiogram EDMS EC:58 Rate is 111 beats/min. Rhythm is regular. PA interval is normal. QRS interval is gs prolonged. T waves are Flattened. Interpreted by me. Administered Medications: 17:02 Drug: Sodium Bicarbonate 1 amp Route: IVP; Site: left antecubital; tw2 17:03 Drug: EPINEPHrine 0.1mg/mL 1:10,000 1 mg Route: IVP; Site: left antecubital; tw2 17:06 Drug: EPINEPHrine 0.1mg/mL 1:10,000 1 mg Route: IVP; Site: left antecubital; tw2 17:09 Drug: EPINEPHrine 0.1mg/mL 1:10,000 1 mg Route: IVP; Site: left antecubital; tw2 17:11 Drug: Sodium Bicarbonate 1 amp Route: IVP; Site: left antecubital; tw2 17:12 Drug: EPINEPHrine 0.1mg/mL 1:10,000 1 mg Route: IVP; Site: left antecubital; tw2 17:15 Drug: EPINEPHrine 0.1mg/mL 1:10,000 1 mg Route: IVP; Site: left antecubital; tw2 17:19 Drug: EPINEPHrine 0.1mg/mL 1:10,000 1 mg Route: IVP; Site: left antecubital; tw2 17:24 Drug: EPINEPHrine 0.1mg/mL 1:10,000 1 mg Route: IVP; Site: left antecubital; tw2 17:29 Drug: EPINEPHrine 0.1mg/mL 1:10,000 1 mg Route: IVP; Site: left antecubital; tw2 17:32 Drug: Dopamine drip 5 mcg/kg/min - (DOPamine 400 mg, D5W 250 ml) {Note: max dose VO 50 tw2 mcg/kg/min per Dr. Castaneda} Route: IV; Rate: calculated rate; Site: right jugular; 18:00 Follow up: IV Status: Order to discontinue infusion sg 17:33 Drug: EPINEPHrine 0.1mg/mL 1:10,000 1 mg Route: IVP; Site: left antecubital; tw2 17:39 Drug: EPINEPHrine 0.1mg/mL 1:10,000 1 mg Route: IVP; Site: left antecubital; tw2 17:42 Drug: EPINEPHrine 0.1mg/mL 1:10,000 1 mg Route: IVP; Site: left antecubital; tw2 17:55 CANCELLED (Duplicate Order): EPINEPHrine 0.1mg/mL 1:10,000 1 mg IVP in left antecubital tw2 once Point of Care Testing: Blood Glucose: 16:52 Blood Glucose: 303 mg/dL; sg Ranges: Critical Glucose Levels:Adult <50 mg/dl or >400 mg/dl <40 mg/dl or >180 mg/dl Disposition: Patient pronounced on 11/03/17 17:42 by Kel Lux. Impression: Severe sepsis with septic shock, Cardiac arrest. - Released to Home. Signatures: Dispatcher [employer] EDMS Lucille Humphreys RN RN aa5 Jessica Watts RN RN tw2 Shonna Ocasio RN RN ea Starr, Gregory, MD MD gs Gay, Steven RN sg Corrections: (The following items were deleted from the chart) 17:55 17:54 EPINEPHrine 0.1mg/mL 1:10,000 1 mg IVP in left antecubital once given. tw2 tw2 17:55 17:55 EPINEPHrine 0.1mg/mL 1:10,000 1 mg IVP in left antecubital once given. tw2 tw2 17:55 17:55 EPINEPHrine 0.1mg/mL 1:10,000 1 mg IVP in left antecubital once ordered. tw2 tw2 20:33 18:04 11/03/2017 18:04 Patient pronounced on 11/03/2017 at 17:42 by Kel Lux. ea Impression: Severe sepsis with septic shock; Cardiac arrest. Released to Home. gs
[2017-11-03 21:00] VITALS: BP 66/46; TEMP 100.1; O2SAT 91
--- NOTE | 2017-11-04 07:41 | EKG ---
Test Date: 2017-11-03 Test Time: 16:53:58 School Counsellor: MAGGY MEASUREMENT RESULTS: Intervals: Rate: 111 WA: 146 QRSD: 112 QT: 356 QTc: 484 [place]: P: 76 WA: 146 QRS: 267 T: 17 INTERPRETIVE STATEMENTS: Sinus tachycardia Pulmonary disease pattern Incomplete right bundle branch block Inferior infarct, age undetermined T wave abnormality, consider anterior ischemia Abnormal ECG Compared to ECG 09/16/2017 22:40:13 Incomplete right bundle-branch block now present Myocardial infarct finding now present T-wave abnormality now present Possible ischemia now present Sinus rhythm no longer present Electronically Signed On 11-04-17 07:41:15 CDT by Yonatan Roth
== END 2017-11-03 20:33 | disposition expired ==
LOC: ER 16:48
PROC: 0BH17EZ Insertion of Endotracheal Airway into Trachea, Via Natural or Artificial Opening (ICD-10-PCS; principal; 2017-11-03)
PROC: 5A1935Z Respiratory Ventilation, Less than 24 Consecutive Hours (ICD-10-PCS; 2017-11-03)
DX: R65.21 Severe sepsis with septic shock (principal); A41.9 Sepsis, unspecified organism; G20 Parkinson's disease; F02.80 Dementia in other diseases classified elsewhere, unspecified severity, without behavioral disturbance, psychotic disturbance, mood disturbance, and anxiety; I10 Essential (primary) hypertension; E78.00 Pure hypercholesterolemia, unspecified; Z86.73 Personal history of transient ischemic attack (TIA), and cerebral infarction without residual deficits
CPT/HCPCS: 31500; 82962; 92950; 93005; 94002; 96365; 96375; 99291; J0171 ×3; J1265; J7030 ×2